=== PATIENT | male | born 1950 | race Caucasian/White ===

== ENCOUNTER 2022-03-22 07:31 | Day surgery (SDC) | payer MEDICARE, SELFPAY ==
[2022-03-22] MEDS: Lactated Ringers 1,000 ML 15 ML IV (08:08)
[2022-03-22 08:10] VITALS: BP 162/77; PULSE 92; RESP 18; TEMP 37.2; O2SAT 99; BMI 30.4
--- NOTE | 2022-03-22 08:30 | COLBX_PTH ---
PATIENT: SAMUEL PASCAL LOC: EN U#:[id number] AGE/SX: 71/M ROOM: RE03/22/[address]: Dr. Josh Krause MD : 1950 BED: DIS: 03/22/2022 SPEC #: [id number] RECD: 03/22/22 11:49 STATUS: YANET ARASH #: [id number] MARY: 03/22/22 08:[address]: Josh Krause DEPT: SURGICAL PATHOLOGY RECD BY: Rosa Elena Alvarado ENTERED: 03/22/22 13:06 SP TYPE: COLON BX OTHR DR: Dr. Joslyn Meade, Tissues: Descending colon Procedures: Surgery Specimen Level IV HEADER OPERATION: Colonoscopy ? open access (MAC), polypectomy PRE-OP DIAGNOSIS: Screening TISSUE SUBMITTED: Descending polyp MICROSCOPIC DIAGNOSIS Descending colon polyp, biopsy: Tubular adenoma. AM:kenny 03/25/2022 MICROSCOPIC DESCRIPTION Slides are reviewed. GROSS DESCRIPTION Received in fixative is one container labeled with the patient's name and designated descending polyp. The specimen consists of a sheikh-pink polyp measuring 0.5 x 0.4 x 0.3 cm. The specimen is totally submitted in one cassette. / SJ:kenny 03/22/2022 TC:5 CPT: 11704
[2022-03-22 08:41] LABS: Bedside Glucose 164 mg/dL (74-106)
[2022-03-22 09:08] VITALS: BP 121/71; BP 162/77; PULSE 87; RESP 16; TEMP 36.8; O2SAT 96
--- NOTE | 2022-03-22 09:09 | OP.COLON_ITS ---
Patient Name: To Chakraborty Procedure Date: 03/22/2022 8:36 AM Date of : 1950 Age: 71 Procedure: Colonoscopy Indications: Screening for colorectal malignant neoplasm Providers: Josh Krause MD Referring MD: Josh Krause MD Medicines: Monitored Anesthesia Care Patient Profile: This is a 71 year old male. Refer to note in patient chart for documentation of history and physical. Last Colonoscopy: none. The patient's first colonoscopy is today. Complications: No immediate complications. Estimated blood loss: Minimal. Procedure: Pre-Anesthesia Assessment: - Prior to the procedure, a History and Physical was performed, and patient medications and allergies were reviewed. The patient's tolerance of previous anesthesia was also reviewed. The risks and benefits of the procedure and the sedation options and risks were discussed with the patient. All questions were answered, and informed consent was obtained. Prior Anticoagulants: The patient has taken no previous anticoagulant or antiplatelet agents. After reviewing the risks and benefits, the patient was deemed in satisfactory condition to undergo the procedure. After I obtained informed consent, the scope was passed under direct vision. Throughout the procedure, the patient's blood pressure, pulse, and oxygen saturations were monitored continuously. The pediatric colonoscope was introduced through the anus and advanced to the cecum, identified by appendiceal orifice and ileocecal valve. The colonoscopy was performed without difficulty. The patient tolerated the procedure well. The quality of the bowel preparation was good. Scope In: 8:50:36 AM Scope Withdrawal Time 0 hours 7 minutes 32 seconds Scope Out: 9:03:55 AM Total Procedure Duration Time 0 hours 13 minutes 19 seconds Findings: A polyp was found in the descending colon. The polyp was removed with a hot snare. Resection and retrieval were complete. The exam was otherwise without abnormality on direct and retroflexion views. Impression: - One polyp in the descending colon, removed with a hot snare. Resected and retrieved. - The examination was otherwise normal on direct and retroflexion views. Recommendation: - Discharge patient to home. - Resume previous diet. - Continue present medications. - Await pathology results. - Repeat colonoscopy in 5 years for surveillance based on pathology results. Procedure Code(s): --- Professional --- 00016, 33, Colonoscopy, flexible; with removal of tumor(s), polyp(s), or other lesion(s) by snare technique Diagnosis Code(s): --- Professional --- Z12.11, Encounter for screening for malignant neoplasm of colon D12.4, Benign neoplasm of descending colon CPT copyright 2017 [employer]. All rights reserved. The codes documented in this report are preliminary and upon airline stewardess review may be revised to meet current compliance requirements. Josh Krause MD 03/22/2022 9:09:05 AM This report has been signed electronically. Number of Addenda: 0 Note Initiated On: 03/22/2022 8:36 AM
[2022-03-22 09:10] VITALS: BP 120/80; BP 162/77; PULSE 84; RESP 16; O2SAT 96
--- NOTE | 2022-03-22 09:10 | OP.CCLET_ITS ---
03/22/2022 Joslyn Meade [address] [place] [address] Re : Colonoscopy procedure for To Chakraborty Dear Dr. Meade This procedure was performed on Tuesday, March 22, 2022. My impressions and recommendations are as follows: Impressions : - One polyp in the descending colon, removed with a hot snare. Resected and retrieved. - The examination was otherwise normal on direct and retroflexion views. Recommendations : - Discharge patient to home. - Resume previous diet. - Continue present medications. - Await pathology results. - Repeat colonoscopy in 5 years for surveillance based on pathology results. My findings are described in the full procedure note, which is enclosed. If I can be of further assistance, please feel free to contact me at Doctor phone number(s): , Work: . Sincerely, Josh Krause MD 03/22/2022 9:09:05 AM This report has been signed electronically.
[2022-03-22 09:15] VITALS: BP 132/80; BP 162/77; PULSE 85; RESP 16; O2SAT 94
[2022-03-22 09:20] VITALS: BP 130/82; BP 162/77; PULSE 86; RESP 16; TEMP 36.8; O2SAT 94
[2022-03-22 09:40] VITALS: BP 162/77
--- NOTE | 2022-04-29 09:53 | HP.PCM_ITS ---
[facility] - General General Date of Service: 03/22/22 HPI Sonja PASCAL, is a 72 M who presents for screening colonoscopy. Patient has never had a colonoscopy in the past and denies abdominal pain or blood in the stool. [facility]LY [facility] Medical History (Updated 03/19/22 @ 10:30 by Charito Hernandez) Alcohol use Diabetes Former smoker H/O transfusion Heartburn HTN (hypertension) Hx of sebaceous cyst Type 2 diabetes mellitus Wears dentures Wears glasses Home Medications metformin 1,000 mg tablet 1,000 mg PO BID 11/24/19 [History Last Taken Unknown] fluticasone propionate 50 mcg/actuation nasal spray,suspension (Flonase Allergy Relief) 1 spray intranasal DAILY 02/22/22 [History Last Taken 03/21/22] multivitamin 1 tab PO DAILY 02/22/22 [History Last Taken 03/18/22] aspirin 81 mg capsule 81 mg PO DAILY 03/19/22 [History Last Taken Unknown] cetirizine 10 mg tablet 10 mg PO DAILY 03/19/22 [History Last Taken Unknown] losartan 100 mg-hydrochlorothiazide 25 mg tablet 1 tab PO DAILY 03/19/22 [History Last Taken 03/21/22] lutein 40 mg capsule 40 mg PO DAILY 03/19/22 [History Last Taken Unknown] omega-3 fatty acids 1,000 mg PO DAILY 03/19/22 [History Last Taken 03/18/22] Allergy/AdvReac Type Severity Reaction Status Date / Time Sulfa (Sulfonamide Allergy Severe Hallucinati Verified 03/22/22 08:07 Antibiotics) ons lisinopril Allergy Mild Tickle in Verified 03/22/22 08:07 throat varenicline [From Chantix] Allergy Rash Verified 03/22/22 08:07 Family History Father Hypertension CVA (cerebral vascular accident) Grandmother Diabetes Surgical History H/O elbow surgery H/O knee surgery Social History household members: spouse housing: house Smoking Status: Former smoker alcohol intake: current alcohol intake frequency: a few times a month what type of physical activity do you participate in: walking and bicycling do you feel safe at home: Yes Past Medical/Surgical History Planned Operation Planned Operative Procedure/s: COLONOSCOPY Previous Hospitalizations/Surgeries HX Hospitalizations: No Any Problems With Anesthesia: No You/Your Family Experience Fever (Hyperthermia) With Anes: No Cholinesterase deficiency: No Cardiovascular Hx Hypertension: Yes (CONTROLLED ON MED) HX Edema: No Respiratory Hx Sleep Apnea: No Hx Respiratory Tract Infection/Cold (presently): No Do You Snore Loudly (louder than talking or can be heard): No Do You Often Feel Tired/ Fatigued/ Sleepy Dring Daytime?: No Has Anyone Observed You Stop Breathing During Sleep?: No Result (for STOP score): Negative Smoking Status: Former smoker Neurological Does patient have nerve stimulator: No Miscellaneous Recent Exposure to Contagious Disease: No Allergies Sulfa (Sulfonamide Antibiotics) Allergy (Severe, Verified 03/22/22 08:07) Hallucinations lisinopril Allergy (Mild, Verified 03/22/22 08:07) Tickle in throat varenicline [From Chantix] Allergy (Verified 03/22/22 08:07) Rash Discharge Is Pt Admitted From a Fpc, or a Shelter: No After D/C, Where Do you Plan to Go: Return Home Vital Signs Vital Signs Vital Signs: Weight Weight: 224 lb Body Mass Index (BMI) 30.4 Physical Exam Const alert and oriented x3 HEENT normocephalic Eyes PERRL Resp normal respiratory effort and normal air movement Cardio regular rate and regular rhythm GI soft to palpation, non-tender and non-distended Extremity normal to inspection Assessment & Plan Assessment/Plan (1) Encounter for screening for malignant neoplasm of colon: PLAN: I explained endoscopy in detail to the patient. I explained the risks including but not limited to stroke or heart attack with anesthesia, perforation of the GI tract, bleeding, infection. I explained that any of these could necessitate further emergency surgery. The patient understands and all que stions were answered sufficiently. The patient wishes to proceed with procedure. Josh Krause MD Pager: [facility] [address] [place] [address], [address] [place] [address] Office: Surgery Risks - Colonoscopy Risks Include but are not Limited To: Risks include but are not limited to: Bleeding, perforation requiring further surgery, inability to complete colonoscopy requiring barium enema.
== END 2022-03-22 10:12 | disposition home or self-care (01) ==
LOC: EN 07:33 → AC 07:34
PROVIDERS: PCP Internal Medicine; Referring Provider Surgery; Visit Provider Surgery
PROC: 0DJD8ZZ Inspection of Lower Intestinal Tract, Via Natural or Artificial Opening Endoscopic (ICD-10-PCS; CPT 45378; principal; 2022-03-22 08:25)
DX: Z12.11 Encounter for screening for malignant neoplasm of colon (principal); E11.9 Type 2 diabetes mellitus without complications; D12.4 Benign neoplasm of descending colon; I10 Essential (primary) hypertension; Z79.82 Long term (current) use of aspirin; Z79.899 Other long term (current) drug therapy; Z79.84 Long term (current) use of oral hypoglycemic drugs; Z87.891 Personal history of nicotine dependence
CPT/HCPCS: 45385; 82962; 88305; J7120; J2405

== ENCOUNTER → 2024-03-18 | Outpatient (CLI) | payer MEDICARE, SELFPAY ==
--- NOTE | 2024-03-18 09:19 | US_ITS ---
STUDY: ABDOMINAL ULTRASOUND - RIGHT UPPER QUADRANT; ELASTOGRAPHY REASON FOR VISIT: Male, 73 years old. Elevated liver enzymes. TECHNIQUE: Ultrasound evaluation of the right upper quadrant was performed with real-time and static dowell-scale imaging. Point quantification shear wave elastography was performed ([facility]). TECHNICAL QUALITY: Adequate. COMPARISON: None. FINDINGS: Liver: The liver measures 16.6 cm. There is increased echogenicity consistent with fatty infiltration. The bile ducts are within normal limits. There is hepatic color flow. The direction of portal flow is hepatopetal. There is no demonstrated mass lesion. Median liver stiffness measured 7.7 kPa. Gallbladder: Normal distended gallbladder. The gallbladder wall measures 2.3 mm. There is a negative sonographic Stratton''s sign. There is no pericholecystic fluid. There are no gallstones. Findings suggestive of cholesterolosis of the gallbladder wall. Common Bile Duct (C.B.D.): The common bile duct measures 3.1 mm. Pancreas: The pancreas is not well visualized due to overlying bowel gas. . Right Kidney: Normal size of the right kidney. The right kidney measures 11.1 cm x 5.2 cm x 5.8 cm. Normal renal cortex. The right cortex measures 1.2 cm. There is no demonstrated renal mass or cyst. There is no right hydronephrosis. US/ABD Limited w/ Elastography IMPRESSION: 1. Liver stiffness measures 7.7 kPa compatible with F2-F3 (Mild to moderate liver fibrosis) Metavir score. Electronically Signed: Burke Brown MD at 13:20 EST ,
== END | disposition home or self-care (01) ==
PROVIDERS: PCP Internal Medicine; Referring Provider Internal Medicine; Visit Provider Internal Medicine
DX: R79.89 Other specified abnormal findings of blood chemistry (principal)
CPT/HCPCS: 76705; 76981

== ENCOUNTER → 2025-01-13 | Outpatient (CLI) | payer MEDICARE, SELFPAY | END | disposition home or self-care (01) | LOC: CIMLAB 08:16 | PROVIDERS: PCP Internal Medicine; Referring Provider Internal Medicine; Visit Provider Internal Medicine | DX: E11.65 Type 2 diabetes mellitus with hyperglycemia (principal) | CPT/HCPCS: 36415; 83036 ==